=== PATIENT | male | born 1970 | race Caucasian/White ===

== ENCOUNTER 2024-10-19 16:57 | Inpatient (IN) | payer OTHER ==
[2024-10-19 18:37] LABS: Specific Gravity 1.025 (1.005-1.030); Sqamous Epithelial None Seen /HPF (None Seen); Urine Bacteria <20 /HPF (<20); Urine Bilirubin NEGATIVE (Negative); Urine Blood 3+ (OVER) (Negative); Urine Clarity Extremely Turbid (Clear); Urine Color Yellow (Yellow); Urine Crystals Unidentified Few /HPF (None Seen); Urine Culture Reflex Order REFLEXED; Urine Glucose 4+ (Over) (Negative); Urine Ketones NEGATIVE (Negative); Urine Microscopic Reflex YN ORDER UMIC; Urine Mucus 1+ /HPF (None Seen); Urine Nitrite NEGATIVE (Negative); Urine Protein 1+ (Negative); Urine RBC >50 /HPF (None Seen); Urine Urobilinogen Normal (Normal); Urine WBC >50 /HPF (<5); Urine Yeast (Budding) Trace /HPF (None Seen)
[2024-10-19] MEDS ORDERED: NA CHLORIDE 0.9% 1,000 ML ONE (18:47)
[2024-10-19 18:55] LABS: Absolute Basophils 0.1 K/uL (0-0.5); Absolute Lymphocytes (CBC) 1.4 K/uL (0.7-4.9); Absolute Monocytes 0.8 K/uL (0.1-1.3); Absolute Neutrophil 13.9 K/uL (1.8-8.0); Basophils % 0.7 % (0-1.3); Hematocrit 45.5 % (39.6-49.0); Hemoglobin 15.2 g/dL (13.6-17.9); Lymphocytes % 8.6 % (15.3-44.8); MCH 31.2 pg (27.0-35.0); MCHC 33.5 g/dL (32.0-36.0); MCV 93.1 fL (80-100); MPV 9.1 fL (7.6-11.3); Monocytes % 4.9 % (3.3-12.3); Neutrophils % 85.8 % (41.7-73.7); Nucleated Red Blood Cells % 0.1 % (0-0); Platelets 209 thou/uL (152-406); RBC Red Blood Cell Count 4.89 M/uL (4.33-5.43); Red Cell Distribution Width 15.3 % (12.1-15.2)
[2024-10-19 19:06] LABS: Albumin 3.4 g/dL (3.4-5.0); Albumin/Globulin Ratio 0.7 (1.1-1.8); Anion Gap 18.1 mEq/L (5.0-15.0); Bilirubin Total 1.1 mg/dL (0.2-1.0); Globulin 4.7 g/dL (2.3-3.5); Potassium 4.1 mEq/L (3.5-5.1); Protein, Total 8.1 g/dL (6.4-8.2)
[2024-10-19 19:50] LABS: PT Prothrombin Time 13.7 SECONDS (9.4-12.5); PTT, Activated Partial Thromb 34.6 SECONDS (24.3-36.9); Protime INR 1.23
--- NOTE | 2024-10-19 20:27 | RAD REPORT ---
EXAMINATION: Stone Protocol CLINICAL INDICATION: Abdominal pain. Flank pain TECHNIQUE: CT abdomen and pelvis was performed, without IV contrast, as per department protocol. Oral contrast not given. Axial, sagittal and coronal reconstructions were obtained. One or more of the following dose reduction techniques were used: Automated exposure control, adjustment of the mA and k V according to the patient size, and iterative reconstruction. Unless otherwise specified, incidental findings do not require dedicated imaging follow-up. COMPARISON: No prior exam. FINDINGS: The lack of intravenous and oral contrast limits the sensitivity of this exam for evaluation of solid visceral organs, vascular structures, and bowel Multiple left renal calculi. Mild to moderate left hydronephrosis. 11 mm calculus distal left ureter. A right renal calculus is not seen. No right ureteral calculus visualized. Tiny calculus within the p osterior right bladder may have recently passed. Bladder wall is thickened and trabeculated. Bladder diverticula Cirrhotic liver. Spleen, pancreas and adrenals grossly normal. No evidence of diverticulitis. Normal appendix IMPRESSION: 11 mm calculus distal left ureter results in mild to moderate left hydronephrosis
[2024-10-19] MEDS ORDERED: CEFTRIAXONE 1000 MG/VIAL ONE (20:34)
--- NOTE | 2024-10-19 20:45 | EDPHYS ---
Physician Documentation [facility] Name: Kev Yu IV Age: 54 yrs Sex: Male : 1970 Arrival Date: 10/19/2024 Time: 16:57 Bed 25 Private MD: ED Physician Ag Manriquez HPI: 10/19 21:15 This 54 yrs old Male presents to ER via Ambulatory with complaints of Flank Pain, kb Urinary Problem. 21:15 Pt is a 54 year old male who presents for flank pain and urinary retention that started kb this morning. states last time he was able to urinate was last night. Went to Dr Chakraborty and was sent here. Denies fever. Historical: - Allergies: 17:32 No Known Allergies; tm6 - PMHx: 17:32 Diabetes mellitus; Hypertensive disorder; tm6 - PSHx: 17:32 None; tm6 - Immunization history:: Flu vaccine is not up to date. - Infectious Disease History:: Denies. - Social history:: Smoking status: Patient denies any tobacco usage or history of. ROS: 21:04 Constitutional: As per HPI kb Exam: 20:58 Constitutional: This is a well developed, well nourished patient who is awake, alert, kb and in no acute distress. Head/Face: Normocephalic, atraumatic. ENT: Moist Mucous membranes Cardiovascular: Regular rate Respiratory: Respirations even and unlabored. No increased work of breathing. Talking in full sentences Skin: Warm, dry with normal turgor. Normal color. MS/ Extremity: Pulses equal, no cyanosis. Neurovascular intact. Full, normal range of motion. Neuro: Awake and alert, GCS 15, oriented to person, place, time, and situation. 20:58 ECG was reviewed by the Attending Physician. 20:58 Abdomen/GI: Inspection: abdomen appears normal, Bowel sounds: normal, Palpation: soft, in all quadrants, mild abdominal tenderness, in the right lower quadrant and left lower quadrant, 20:58 Back: CVA tenderness, that is mild, is noted bilaterally, Vital Signs: 17:31 BP 184 / 116; Pulse 130; Resp 40; Temp 98.3(O); Pulse Ox 99% on R/A; MAP 135 mmHg; tm6 Weight 120.2 kg; Height 6 ft. 0 in. ; Pain 7/10; 18:30 BP 150 / 96; Pulse 122; Resp 16; Pulse Ox 96% on R/A; me1 19:30 BP 120 / 62; Pulse 116; Resp 18; Pulse Ox 95% ; me1 20:30 BP 121 / 73; Pulse 124; Resp 16; Pulse Ox 96% on R/A; me1 17:31 Body Mass Index 35.94 (120.20 kg, 182.88 cm) tm6 17:31 Pain Scale: Adult tm6 MDM: 17:00 Medical Screening Exam initiated kb 20:37 Data reviewed: vital signs, nurses notes. Consideration of Admission/Observation kb Patient was admitted/placed on observation. Escalation of care including admission/observation considered. Management of patient was discussed with the following: Hospitalist: Dr Stoner accepts pt for admisison. Configuration Analyst: Dr Farmer accepts pt for admission, will take to OR tonight. 20:50 Differential diagnosis: nephrolithiasis, pyelonephritis, UTI. ED course: Sepsis kb reevaluation complete. 21:37 Counseling: I had a detailed discussion with the patient and/or guardian regarding the kb historical points, exam findings, and any diagnostic results supporting the discharge/admit diagnosis, lab results, radiology results, the need for further work-up and treatment in the hospital. 10/19 17:01 Order name: CBC with Diff; Complete Time: 20:52 kb 10/19 17:01 Order name: CMP; Complete Time: 19:15 kb 10/19 17:01 Order name: Lipase; Complete Time: 19:15 kb 10/19 17:01 Order name: Urinalysis w/ reflexes; Complete Time: 18:45 kb 10/19 18:40 Order name: Urine Culture EDMN 10/19 19:03 Order name: Blood Culture Adult (2) 10/19 19:03 Order name: Lactate w/ 2H reflex if indic.; Complete Time: 20:20 kb 10/19 19:03 Order name: Protime (+inr); Complete Time: 19:53 kb 10/19 19:03 Order name: Ptt, Activated; Complete Time: 19:53 kb 10/19 20:19 Order name: Ghost Lactate-NO COLLECT Timer [facility] 10/19 20:50 Order name: CBC Smear Scan; Complete Time: 20:52 EDMN 10/19 17:01 Order name: CT Stone Protocol; Complete Time: 20:29 kb 10/19 19:03 Order name: EKG; Complete Time: 19:03 kb 10/19 17:01 Order name: IV Saline Lock; Complete Time: 18:47 kb 10/19 17:01 Order name: Labs collected and sent; Complete Time: 18:47 kb 10/19 19:02 Order name: Bladder Scanner; Complete Time: 20:16 kb 10/19 19:03 Order name: Cardiac monitoring; Complete Time: 20:16 kb 10/19 19:03 Order name: EKG - Nurse/Tech; Complete Time: 19:34 kb 10/19 19:03 Order name: O2 Per Protocol; Complete Time: 19:34 kb 10/19 19:03 Order name: O2 Sat Monitoring; Complete Time: 19:34 kb EC:58 Rate is 114 beats/min. Rhythm is regular. QRS Vansant is Normal. CO interval is normal at kb 174 msec. QRS interval is normal at 76 msec. QT interval is normal at 457 msec. Administered Medications: 18:50 Drug: NS 0.9% IV 1000 ml IV at 1000 ml once; to be given as a bolus over 60 minutes me1 Route: IV; Rate: 1000 ml; Site: left antecubital; 19:50 Follow up: Response: No adverse reaction; IV Status: Completed infusion; IV Intake: me1 1000ml 20:41 Drug: Rocephin IV 1 grams IV at calculated rate once; Given slow IV push per pharmacy me1 instructions Route: IV; Rate: calculated rate; Site: left antecubital; 20:59 Follow up: Response: No adverse reaction; IV Status: Completed infusion me1 20:41 Drug: NS 0.9% IV (30 ml/kg) 30 ml/kg IV at bolus once; to be given as a bolus over 90 me1 minutes, include previous NS Route: IV; Rate: bolus; Site: left antecubital; 21:00 Follow up: IV Status: Infusion continued upon admission me1 Disposition: 10/20 16:16 Co-signature as Attending Physician, Ag Manriquez MD I reviewed the patient's care rn provided by the Advanced Practice Provider and agree with the diagnosis and treatment plan. Disposition Summary: 10/19/24 20:45 Hospitalization Ordered Notes: Hospitalization Status: Inpatient Admission kb Provider: Umang Stoner Location: Telemetry/MedSurg (Inpatient) kb Condition: Stable kb Problem: new kb Symptoms: are unchanged kb Bed/Room Type: Standard kb Room Assignment: kb Diagnosis - UTI/ Urinary tract infection, site not specified kb - Severe sepsis with septic shock kb - Calculus of ureter kb - Retention of urine, unspecified kb Forms: - Medication Reconciliation Form kb - SBAR form kb - Leadership Thank You Letter kb Signatures: Dispatcher [employer] EDMS Elisabeth Miranda, TREATING ENGINEER HELPER-C TREATING ENGINEER HELPER-Ckb Ag Manriquez MD MD rn Patti Rosales RN RN me1 Jak Cadet RN RN tm6 Corrections: (The following items were deleted from the chart) 10/19 17:02 17:02 CBC+H.LAB.BRZ ordered. EDMS EDMS 17:02 17:02 COMPREHENSIVE METABOLIC PANEL+C.LAB.BRZ ordered. EDMS EDMS 17:02 17:02 LIPASE+C.LAB.BRZ ordered. EDMS EDMS 17:02 17:02 Urinalysis+U.LAB.BRZ ordered. EDMS EDMS 19:03 19:03 BLOOD CULTURE*+BA.LAB.BRZ ordered. EDMS EDMS 19:03 19:03 LACTATE+C.LAB.BRZ ordered. EDMS EDMS 19:03 19:03 PROTIME (+INR)+COAG.LAB.BRZ ordered. EDMS EDMS 19:03 19:03 PTT, ACTIVATED+COAG.LAB.BRZ ordered. EDMS EDMS
--- NOTE | 2024-10-19 20:45 | ER ---
Nurse's Notes [facility] [place], [place] Name: Kev Yu IV Age: 54 yrs Sex: Male : 1970 Arrival Date: 10/19/2024 Time: 16:57 Bed 25 Private MD: Diagnosis: UTI/ Urinary tract infection, site not specified;Severe sepsis with septic shock;Calculus of ureter;Retention of urine, unspecified Presentation: 10/19 17:31 Chief complaint: Patient states: sent by Dr. Chakraborty. No urination since last night, but tm6 urgency to pee. Pain in RLQ. Coronavirus screen: Client denies travel out of the [place] in the last 14 days. Ebola Screen: Patient negative for fever greater than or equal to 101.5 degrees Fahrenheit, and additional compatible Ebola Virus Disease symptoms Patient denies exposure to infectious person. Patient denies travel to an Ebola-affected area in the 21 days before illness onset. Patient positive for the following Ebola Virus Disease associated symptoms:. Initial Sepsis Screen: Does the patient meet any 2 criteria? RR > 20 per min. HR > 90 bpm. Does the patient have a suspected source of infection? No. Patient's initial sepsis screen is negative. Risk Assessment: Do you want to hurt yourself or someone else? Patient reports no desire to harm self or others. Onset of symptoms was October 18, 2024. 17:31 Method Of Arrival: Ambulatory tm6 17:31 Acuity: NAYELI 3 tm6 Triage Assessment: 17:32 General: Appears uncomfortable, Behavior is cooperative. Pain: Complains of pain in tm6 right lower quadrant Pain currently is 7 out of 10 on a pain scale. EENT: No signs and/or symptoms were reported regarding the EENT system. Neuro: Level of Consciousness is awake, alert, obeys commands, Oriented to person, place, time, situation. Cardiovascular: Patient's skin is warm and dry. Respiratory: Airway is patent Respiratory effort is even, labored, Respiratory pattern is tachypnea. GI: Abdomen is round. : Reports inability to void, urgency. Derm: No signs and/or symptoms reported regarding the dermatologic system. Musculoskeletal: No signs and/or symptoms reported regarding the musculoskeletal system. Historical: - Allergies: 17:32 No Known Allergies; tm6 - PMHx: 17:32 Diabetes mellitus; Hypertensive disorder; tm6 - PSHx: 17:32 None; tm6 - Immunization history:: Flu vaccine is not up to date. - Infectious Disease History:: Denies. - Social history:: Smoking status: Patient denies any tobacco usage or history of. Screenin:00 [facility] ED Fall Risk Assessment (Adult) History of falling in the last 3 months, me1 including since admission No falls in past 3 months (0 pts) Confusion or Disorientation No (0 pts) Intoxicated or Sedated No (0 pts) Impaired Gait No (0 pts) Mobility Assist Device Used No (0 pt) Altered Elimination No (0 pt) Score/Fall Risk Level 0 - 2 = Low Risk Maintained a safe environment, Provided non-skid footwear, Hourly rounding (assess needs \T\ fall precautionary measures) done. Abuse screen: Denies threats or abuse. Nutritional screening: No deficits noted. Tuberculosis screening: No symptoms or risk factors identified. Assessment: 18:00 General: Appears uncomfortable, well groomed, well developed, well nourished, Behavior me1 is cooperative, appropriate for age, anxious, Reports sent by Dr. Chakraborty. No urination since last night, but urgency to pee. Pain in RLQ. Pain: Complains of pain in right lower quadrant Pain does not radiate. Pain currently is 6 out of 10 on a pain scale. Quality of pain is described as aching, Pain began gradually, Is continuous. Neuro: Level of Consciousness is awake, alert, obeys commands, Oriented to person, place, time, situation, Appropriate for age. Cardiovascular: Patient's skin is warm and dry. Respiratory: Airway is patent Respiratory effort is even, unlabored, Respiratory pattern is regular, symmetrical. GI: Reports lower abdominal pain. : Reports inability to void, since last night pain in right lower quadrant(s). EENT: No signs and/or symptoms were reported regarding the EENT system. Derm: Skin is intact, is healthy with good turgor, Skin is pink, warm \T\ dry. Musculoskeletal: No signs and/or symptoms reported regarding the musculoskeletal system. 19:36 General: Patient has been incontinent 3 times, voiding about 200 ml each time. me1 20:16 General: bladder scanner: 347ml. nv1 Vital Signs: 17:31 BP 184 / 116; Pulse 130; Resp 40; Temp 98.3(O); Pulse Ox 99% on R/A; MAP 135 mmHg; tm6 Weight 120.2 kg; Height 6 ft. 0 in. ; Pain 7/10; 18:30 BP 150 / 96; Pulse 122; Resp 16; Pulse Ox 96% on R/A; me1 19:30 BP 120 / 62; Pulse 116; Resp 18; Pulse Ox 95% ; me1 20:30 BP 121 / 73; Pulse 124; Resp 16; Pulse Ox 96% on R/A; me1 17:31 Body Mass Index 35.94 (120.20 kg, 182.88 cm) tm6 17:31 Pain Scale: Adult tm6 ED Course: 16:59 Patient arrived in ED. im 17:00 Elisabeth Miranda FNP-C is PHCP. kb 17:00 Ag Manriquez MD is Attending Physician. kb 17:32 Triage completed. tm6 17:32 Arm band placed on left wrist. tm6 17:38 Patti Rosales, BESSY is Primary Nurse. me1 18:00 Patient has correct armband on for positive identification. Bed in low position. Call me1 light in reach. Side rails up X2. Provided Education on: POC. Verbalized understanding.. Client placed on continuous cardiac and pulse oximetry monitoring. NIBP monitoring applied. Pulse ox on. NIBP on. 18:00 No provider procedures requiring assistance completed. me1 18:43 Initial lab(s) drawn, by nv, sent to lab. Urine collected: clean catch specimen, [facility] cloudy, juan colored. Inserted saline lock: 22 gauge in left antecubital area, using aseptic technique. 18:47 CBC with Diff Sent. me1 18:47 CMP Sent. me1 18:47 Lipase Sent. me1 18:47 Urine Culture Sent. me1 19:26 First set of blood cultures drawn by nv. me1 19:34 Blood Culture Adult (2) Sent. me1 19:34 Lactate w/ 2H reflex if indic. Sent. me1 19:34 Protime (+inr) Sent. me1 19:34 Ptt, Activated Sent. me1 19:37 Second set of blood cultures drawn by nv. me1 19:43 CT Stone Protocol In Process Unspecified. EDMS 20:17 Notified Nurse Practitioner and/or Physician Resident Service Coordinator of a critical lab result(s), me1 lactate 6.3. 20:45 Umang Stoner MD is Hospitalizing Provider. kb 21:00 Patient admitted, IV remains in place. me1 Administered Medications: 18:50 Drug: NS 0.9% IV 1000 ml IV at 1000 ml once; to be given as a bolus over 60 minutes me1 Route: IV; Rate: 1000 ml; Site: left antecubital; 19:50 Follow up: Response: No adverse reaction; IV Status: Completed infusion; IV Intake: me1 1000ml 20:41 Drug: Rocephin IV 1 grams IV at calculated rate once; Given slow IV push per pharmacy me1 instructions Route: IV; Rate: calculated rate; Site: left antecubital; 20:59 Follow up: Response: No adverse reaction; IV Status: Completed infusion me1 20:41 Drug: NS 0.9% IV (30 ml/kg) 30 ml/kg IV at bolus once; to be given as a bolus over 90 me1 minutes, include previous NS Route: IV; Rate: bolus; Site: left antecubital; 21:00 Follow up: IV Status: Infusion continued upon admission me1 Medication: 18:00 VIS not applicable for this client. me1 Intake: 19:50 IV: 1000ml; Total: 1000ml. me1 Outcome: 20:45 Decision to Hospitalize by Provider. kb 21:00 Admitted to OR accompanied by nurse, room OR, with chart, Report called to BESSY Morton me1 21:00 Condition: stable 21:00 Instructed on the need for admit, 21:03 Patient left the ED. [facility] Signatures: Dispatcher [employer] Elisabeth Brooks, [employer] W[employer]CKING CRANE ENGINE OPERATOR-Joyce Guillen Michelle, RN RN me1 Jak Cadet RN RN tm6 Corrections: (The following items were deleted from the chart) 18:50 17:31 Chief complaint: Patient states: sent by Dr. Chakraborty. No urination since last me1 night, but urgency to pee. Pain in RLQ tm6
[2024-10-19 20:49] LABS: Blood Morphology Comment NOT SEEN (NOT SEEN); Platelet Estimate ADEQ; White Blood Cell Scan OK (OK)
[2024-10-19] MEDS ORDERED: ONDANSETRON 4 MG/2 ML VIAL IV PRN (21:18)
[2024-10-19] MEDS ORDERED: ACETAMINOPHEN 325 MG TABLET PO PRN (21:18)
--- NOTE | 2024-10-19 21:18 | P.HP ---
Certification for Inpatient Patient admitted to: Inpatient With expected LOS: >2 Midnights Practitioner: I am a practitioner with admitting privileges, knowledge of patient current condition, hospital course, and medical plan of care. Services: Services provided to patient in accordance with Admission requirements found in Title 42 Section 412.3 of the Code of Federal Regulations Patient History Date of Service: 10/20/24 Reason for admission: Ureteric Colic History of Present Illness: 54-year-old male with past medical history of hypertension, diabetes, hyperlipidemia, was sent to ER by Dr. Chakraborty as he was complaining of pain in lateral lower quadrant which started 2 days ago and has been progressively getting worse associated with dysuria and frequency of micturition and states that he could not pee since last night. Patient was progressively getting worse and was brought to ER. Denies any fever or chills. No chest pain or shortness of breath. No nausea vomiting or diarrhea. Patient was assessed in the ER and is admitted for further management of nephrolithiasis and urology consult Allergies No Known Allergies Allergy (Unverified 10/19/24 21:40) Home medications list reviewed: Yes Home Medications: Allopurinol 300 mg PO DAILY 10/20/24 Insulin Degludec [Tresiba] 64 unit SQ DAILY 10/20/24 Metformin ER [Glucophage ER] 500 mg PO BID 10/20/24 Rosuvastatin Calcium 20 mg PO DAILY 10/20/24 - Past Medical/Surgical History Past Medical History: Reviewed- Non-Contributory -: DM,HTN Past Surgical History: Reviewed- Non-Contributory - Family History Family History: Reviewed- Non-Contributory - Social History Smoking Status: Never smoker Review of Systems 10-point ROS is otherwise unremarkable Physical Examination - Vital Signs Temperature: 98.3 F Blood Pressure: 184/116 Pulse: 112 Respirations: 20 Pulse Ox (%): 94 - Physical Exam General: Alert, Moderate distress HEENT: Atraumatic, Normocephalic Neck: Supple Respiratory: Clear to auscultation bilaterally, Normal air movement Cardiovascular: Normal pulses, Normal S1 S2 Capillary refill: <2 Seconds Gastrointestinal: Soft and benign, W/out hepatosplenomegaly, Tenderness Musculoskeletal: No clubbing Integumentary: No rashes Neurological: Normal gait, Normal strength at 5/5 x4 extr, Cranial nerves 3-12 intact, Normal reflexes 2+ Lymphatics: No axilla or inguinal lymphadenopathy - Studies Laboratory Data (last 24 hrs) 10/19/24 10/19/24 10/19/24 19:26 18:42 18:42 WBC 16.20 H Hgb 15.2 Hct 45.5 Plt Count 209 PT 13.7 H INR 1.23 APTT 34.6 Sodium 137 Potassium 4.1 BUN 20 H Creatinine 1.49 H Glucose 235 H Total Bilirubin 1.1 H AST 64 H ALT 49 Alkaline Phosphatase 83 Lipase 50 Assessment and Plan - Plan Calculus left distal ureter with hydronephrosis left side Ureteric colic Lactic acidosis Acute kidney injury Elevated LFTs Leukocytosis UTI Plan CT findings noted 11 mm calculus distal left ureter results in mild to moderate left hydronephrosis Pain control IV hydration Started on IV antibiotics Will obtain cultures Serial lactic acid levels Appreciate help from urology Status post stent placement Renal parameters monitor Insulin sliding scale Antihypertensives titrated Will monitor LFTs in a.m. GI/DVT prophylaxis Advanced directive full code Discharge Plan: Home Plan to discharge in: 48 Hours - Advance Directives Does patient have a Living Will: No Does patient have a Durable POA for Healthcare: No - Code Status/Comfort Care Code Status: Full Code Time Spent Managing Pts Care (In Minutes): 48
[2024-10-19] MEDS: SUCCINYLCHOLINE 20 MG/ML (10 ML) IV ONE (21:31)
--- NOTE | 2024-10-19 21:32 | P.CNS ---
Date of Consult: 10/19/24 Reason for Consult: Obstructive ureterolithiasis and suspected sepsis with shock Chief Complaint: Ureteric Colic History of Present Illness: 54-year-old gentleman with IDDM 2, hypertension, hypercholesterolemia and gout with history of penile skin graft over 30 years ago presents via the emergency department because he could not void this a.m. He noted that for the last 2 weeks, he has had a weak stream, but this occurred out of the blue. He denied any associated fever/chills, nausea or vomiting. He was having some right lower quadrant pain and may have had a slight degree of right flank pain as well, but this was mild, 1 out of 10 in intensity. He denies any prior history of kidney stones. In the emergency department, 3 nurses attempted to pass a catheter unsuccessfully, meeting a point of obstruction somewhere within the mid proximal urethra according to the patient. Past medical history: As above Past surgical history: As above Family history: Denies urologic malignancy Social history: Denies any history of smoking No known drug allergies Examination: Patient reasonably well-appearing and in no acute distress Alert, awake, oriented x 3 No dyspnea or sign of respiratory distress Pulse 2+ radial, regular but tachycardic Abdomen soft, nontender, nondistended but obese Resting in a hospital stretcher 10/19/2024 WBC 16.2, hemoglobin 15.2, platelets 209, creatinine 1.49, glucose 235, lactate 6.3, AST mildly elevated 64, INR 1.23 UA micro 3+ heme, 1+ leukocyte esterase, negative nitrites, over 50 RBCs/WBCs per hpf 10/19/2024 CT abdomen and pelvis without contrast impression: An 11 mm calculus distal left ureter resulting in mild to moderate left hydronephrosis. Findings: A right renal calculus is not seen. No right ureteral calculus visualized. Tiny calculus within the posterior right bladder may have recently passed. Bladder wall is thickened and trabeculated. Bladder diverticula. Cirrhotic liver. -I reviewed the images of the CT scan in detail with the following findings: Left kidney with 4 stones, 6 mm largest within the mid lower pole Left distal ureter 11 mm burden of stone with ureteral nephrosis extending down to the UVJ Mild right hydronephrosis with mild ureteral nephrosis noted without obstructing stone Thickened bladder wall with bilateral posterior wall diverticula Assessment and recommendations: 54-year-old gentleman with IDDM 2, hypertension, hypercholesterolemia and gout with history of penile skin graft over 30 years ago due to adhesions apparently with recent irritative and obstructive LUTS with findings of large volume left ureterolithiasis causing obstruction with left-sided hydronephrosis and suspected pyelonephritis with signs of septic shock, right mild hydroureteronephrosis, evidence of chronic cystitis with suspected lower obstructive uropathy. -Operative evaluation and management now required as follows: Cystoscopy with urethral manipulation, possible Jasmine catheter placement followed by left retrograde pyelography and stent placement, right retrograde pyelography possible stent placement. I counseled him on the potential need for percutaneous nephrostomy tube placement on the left side. We discussed potentially having to keep a catheter for up to 10 days. Potential for worsening of his underlying infection was discussed. -Ceftriaxone given in the emergency department -Emergent operative intervention Home medications list reviewed: Yes - Past Medical/Surgical History Diabetic: Yes -: DM,HTN Physical Examination Laboratory Data (last 24 hrs) 10/19/24 10/19/24 10/19/24 19:26 18:42 18:42 WBC 16.20 H Hgb 15.2 Hct 45.5 Plt Count 209 PT 13.7 H INR 1.23 APTT 34.6 Sodium 137 Potassium 4.1 BUN 20 H Creatinine 1.49 H Glucose 235 H Total Bilirubin 1.1 H AST 64 H ALT 49 Alkaline Phosphatase 83 Lipase 50 - Problems (1) Obstructive pyelonephritis Current Visit: Yes Status: Acute (2) Septic shock Current Visit: Yes Status: Acute (3) Nephroureterolithiasis Current Visit: Yes Status: Acute (4) Bilateral hydronephrosis Current Visit: Yes Status: Acute (5) Chronic cystitis Current Visit: Yes Status: Acute (6) Lower obstructive uropathy Current Visit: Yes Status: Acute Conclusions/Impression: see A&P in HPI Critical Care: No Time Spent Managing Pts care (In Minutes): 45
[2024-10-19] MEDS ORDERED: FENTANYL CITR 100 MCG/2 ML ONE (21:37)
[2024-10-19] MEDS ORDERED: MIDAZOLAM HCL 2 MG/2 ML INJ ONE (21:37)
[2024-10-19] MEDS ORDERED: propofoL 200 MG/20 ML VIAL IV ONE (21:37)
[2024-10-19] MEDS ORDERED: NA CHLORIDE 0.9% 1,000 ML IV SCH (22:00)
[2024-10-19] MEDS: NA CHLORIDE 0.9% 3,000 ML ONE (22:18)
[2024-10-19] MEDS ORDERED: Phenylephrine HCl 10 MG/ML 1 ML VIAL ONE (22:22)
[2024-10-19] MEDS ORDERED: Mastisol Adhesive Liq ONE (22:32)
--- NOTE | 2024-10-19 23:04 | P.OP ---
Date of Service: 10/19/24 Preoperative diagnoses: Obstructive pyelonephritis Severe sepsis, suspected septic shock Bilateral hydronephrosis, left greater than right Left obstructive ureterolithiasis with nephrolithiasis Lower obstructive uropathy Postoperative diagnoses: Obstructive pyelonephritis Severe sepsis, suspected septic shock Bilateral hydronephrosis, left greater than right Left obstructive ureterolithiasis with nephrolithiasis Perineal urethral stricture disease Bladder diverticulae with mild to moderate trabeculation Principal procedures: Cystoscopy Sequential urethral dilation over a wire Left retrograde pyelography Left 6 [place]ian by 26 cm double-J ureteral stent placement Right retrograde pyelography Right 6 [place]ian by 26 double-J tethered ureteral stent placement Complex 20 [place] Jasmine catheter placement over a wire Indication for procedure: 54-year-old gentleman with IDDM 2, hypertension, hypercholesterolemia and gout with history of penile skin graft over 30 years ago due to adhesions apparently with recent irritative and obstructive LUTS with findings of large volume left ureterolithiasis causing obstruction with left-sided hydronephrosis and suspected pyelonephritis with signs of septic shock, right mild hydroureteronephrosis, evidence of chronic cystitis with suspected lower obstructive uropathy. Procedure note: The patient, who is showing signs of severe sepsis, possible shock associated with a lactate above 6, was receiving 3 L of IV fluids started in the emergency department. He had been given ceftriaxone also in the emergency department. He was consented in the preoperative holding area before being transferred to the operative suite where general anesthesia was induced. He was placed in the lithotomy position, padded and secured appropriately to the table. His genitalia was prepped with Hibiclens and he was draped in standard fashion. The case was begun using the 22 [place]ian rigid cystoscope to traverse the meatus and the distal urethra until a point of pinpoint stricture narrowing was noted in the perineal aspect of the urethra, likely further traumatized by attempted catheter placement. A filmy covering over the pinpoint opening in the center of the lumen of the stricture disease was present. Under direct vision, I passed a sensor wire via the scope through the area of lucency in the center of the stricture and ultimately coiled it within the bladder putatively. This was confirmed with fluoroscopic imagery showing the wire coiled within a dilated bladder. I then passed a 5 [place]ian ureteral access catheter over the sensor wire into the bladder and exchanged the sensor wire for a stiffer guidewire associated with the sequential Cook dilators. I then began dilating the stricture disease from 8 Lithuanian to 22 Lithuanian over the wire. Once this was completed, I then backloaded the cystoscope over the wire and passed it beyond the area of stricture narrowing within the perineo-bulbar urethra and ultimately through the prostatic urethra which was insignificantly obstructing before entering the bladder. I then decompressed the bladder of a large volume of urine and surveyed it. The following were the findings: Meatus -patent with evidence of skin grafting involving the entirety of the phallus Urethra -perineo-bulbar stricture disease, dilated Prostatic urethra -mild lateral lobar hypertrophy with no significant intravesical projection Bladder -mild to moderately trabeculated throughout with small diverticuli posteriorly and small stones noted within. The ureteral orifices were orthotopic in location and nonobstructed. I thus cannulated the left ureteral orifice using the tip of a 5 [place]ian ureteral access catheter. A retrograde pyelography was then performed. Left retrograde pyelography: Using a 70: 30 mixture of Omnipaque and saline, the contrast mixture was injected via the 5 [place]ian ureteral access catheter and did propagate into the distal ureter where it met a point of tortuosity that delayed progression of the contrast into the mid ureter where additional tortuosity was encountered before entering the proximal ureter and ultimately into the renal pelvis and calyces where moderate pelvocaliectasis was noted. The stones were radiolucent. I then passed the sensor wire via the 5 [place]ian ureteral access catheter with initially some difficulty navigating it beyond the initial point of tortuosity, ultimately navigating it successfully into the proximal ureter and renal pelvis and upper pole calyx. Over the wire, I then passed a 6 [place] by 26 cm double-J ureteral stent where a coil was formed fluoroscopically in the upper pole of the left kidney and 1 cystoscopically formed in the bladder. The stent was not tethered because of the volume of stone burden that still needed to be managed. I then turned my attention to the patient's right ureteral orifice which was similarly cannulated using the tip of a 5 [place]ian ureteral access catheter, and performed a retrograde pyelography study. Right retrograde pyelography: Similarly, using the 70: 30 mixture of Omnipaque and saline, the mixture was injected via the 5 [place] ureteral access catheter and did propagate up the distal into the mid and proximal ureter before entering the renal pelvis and calyces which did fill without any evidence of filling defect. Mild pelviectasis with minimal blunting of the calyces was noted. I then observed the kidney for drainage and efflux of the contrast over the course of the next several minutes, and while the contrast did exit the ureter well, there was slight delayed exit of contrast from the renal pelvis and calyces. Spot fluoroscopic imagery was done between 30 seconds and 1 minute and again at 3 minutes. As a result, I elected to place a tethered 6 [place]ian by 26 cm double-J ureteral stent into his right ureter, with a coil observed fluoroscopically in the upper pole calyx and 1 cystoscopically formed in his bladder. Since the stent was lef t on his tether, I remove the cystoscope and then replaced the cystoscope via his urethra into his bladder ultimately to pass the catheter guidewire via the scope into the bladder and then leaving the wire in place, passed a 20 [place] tip Jasmine catheter over the wire into the bladder. 15 cc of sterile water was placed in the balloon. The tether of the right ureteral stent was secured to the catheter using Mastisol and Steri-Strips, and the catheter was connected to a floor bag. He was then taken out of the lithotomy position, awakened from general anesthesia, transferred to a stretcher, and then transferred to the recovery room in good condition. Complications: None Discharge disposition: A second lactic acid was sent at around 10:22PM intraoperatively while the initial bolus of 3 L was still running him. The patient remained somewhat tachypneic even at the end of the procedure and remained tachycardic as well. He will be admitted and managed expectantly given his suspected sepsis. Subsequent follow-up should be established in the urology clinic in 10 to 14 days for urethral Jasmine catheter removal along with the tethered right ureteral stent, which is secured to the catheter. Subsequent definitive management of his left nephroureterolithiasis will be discussed with me in preoperative evaluation prior to plans for definitive management as follows: Left ureteroscopy with laser lithotripsy and stent exchange, ideally this will be completed within the next 30 days if possible.
[2024-10-19] MEDS: Ringers Lactate 1,000 ML IV ONE (23:11)
[2024-10-19] MEDS: Ringers Lactate 1,000 ML IV SCH (23:48)
[2024-10-19] MEDS: MORPHINE 2 MG/ML SYR IV PRN (23:49)
[2024-10-20 00:20] VITALS: BMI 35.9
[2024-10-20] MEDS ORDERED: LABETALOL 20 MG/4ML SYRINGE IV PRN (00:43)
[2024-10-20] MEDS: HYDROCODONE/APAP 5/325 MG TAB PO PRN (02:31)
[2024-10-20 07:02] LABS: Absolute Basophils 0.2 K/uL (0-0.5); Absolute Eosinophils 0.1 K/uL (0-0.5); Absolute Lymphocytes (CBC) 3.5 K/uL (0.7-4.9); Absolute Monocytes 1.5 K/uL (0.1-1.3); Basophils % 1.1 % (0-1.3); Eosinophils % 0.7 % (0-4.4); Hematocrit 40.8 % (39.6-49.0); Hemoglobin 13.4 g/dL (13.6-17.9); Lymphocytes % 23.1 % (15.3-44.8); MCH 30.6 pg (27.0-35.0); MCHC 32.7 g/dL (32.0-36.0); MCV 93.6 fL (80-100); MPV 9.5 fL (7.6-11.3); Monocytes % 9.9 % (3.3-12.3); Neutrophils % 65.2 % (41.7-73.7); Platelets 152 thou/uL (152-406); RBC Red Blood Cell Count 4.36 M/uL (4.33-5.43); Red Cell Distribution Width 15.1 % (12.1-15.2)
[2024-10-20 07:27] LABS: Albumin 2.7 g/dL (3.4-5.0); Albumin/Globulin Ratio 0.7 (1.1-1.8); Anion Gap 11.6 mEq/L (5.0-15.0); Bilirubin Total 0.9 mg/dL (0.2-1.0); Globulin 3.9 g/dL (2.3-3.5); Phosphorus 2.3 mg/dL (2.5-4.9); Protein, Total 6.6 g/dL (6.4-8.2)
[2024-10-20 07:28] LABS: Magnesium 1.9 mg/dL (1.6-2.4); Potassium 3.6 mEq/L (3.5-5.1)
--- NOTE | 2024-10-20 07:43 | RAD REPORT ---
EXAM: Cystogram HISTORY: cysto COMPARISON: None Fluoroscopy time 0.24 minutes.
[2024-10-20] MEDS: ENOXAPARIN 40 MG/0.4 ML SQ SCH (07:50)
[2024-10-20] MEDS: FLU (Fluarix Triv) TS24-25(6MOS UP)/PF 45 MCG/0.5 ML Syringe IM ONE (07:50)
[2024-10-20] MEDS: PNEUMOCOCCAL VACCINE 0.5 ML IMVAC ONE (07:50)
[2024-10-20] MEDS: allopurinoL 300 MG TAB PO SCH (07:51)
[2024-10-20] MEDS: ROSUVASTATIN 10 MG TAB PO SCH (07:51)
[2024-10-20] MEDS: Ringers Lactate 1,000 ML IV SCH (07:52)
[2024-10-20] MEDS ORDERED: HOME MED 1 EA UNK (Insulin Degludec [Tresiba] 100 UNIT/ML Vial) SQ SCH (09:00)
[2024-10-20] MEDS ORDERED: METFORMIN ER 500 MG TAB PO SCH (09:00)
--- NOTE | 2024-10-20 11:38 | P.PN ---
Subjective Date of Service: 10/20/24 Chief Complaint: Ureteric Colic Subjective: Improving Patient underwent urology procedure yesterday, left ureteral stent placement. Patient reports this morning experiencing pain which is relieved by [place] and mild gross hematuria in Jasmine bag, denied any fever or chills or rigor or flank pain. Review of Systems Other: Consitutional; fever(-), chills (-), rigor(-), night sweat(-), unintentional weight loss(-) HEENT; diplopia (-), rhinorrhea (-), epistaxis (-), otorrhea (-), otalgia (-) Respiratory; shortness of breath (-), wheezing (-), cough (-), sputum (-), pleuritic chest pain (-) Cardiovascular; chest pain (-), peripheral edema (-), paroxysmal nocturnal dyspnea (-), orthopnea (-) Gastrointestinal; nausea (-), vomiting (-), abdominal pain (-), diarrhea (-), constipation (-), melena (-), hematochezia (-) Urinary; urinary frequency (-), dysuria (-), urgency (-), flank pain (-), gross hematuria (+), incontinence (-) Skin; rash (-), pruritus (-) 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 General: Obese, not acutely ill looking, in no apparent distress,. HEENT: Normocephalic, atraumatic, nonicteric sclera, nonanemic conjunctive. Neck: Supple, without JVD or goiter or thyroid mass. Respiratory: Normal breathing effort, clear to auscultation bilaterally, no crackles no wheezing or rhonchi. Cardiovascular: Regular rate and rhythm, S1, S2 normal, no murmur no gallop. Gastrointestinal: Normal bowel sounds, nondistended, nontender, No ascites, , No masses, no hepatosplenomegaly, indwelling Jasmine catheter in, light bloody urine in the bag. Extremities l: No clubbing, No peripheral edema, full range of motion, no deformity, no muscle atrophy. Integumentary: No rashes, petechia, suspected lesions. Lymphatics: No axilla or cervical lymphadenopathy. Neurology; alert awake oriented x3, no focal neurologic deficit, normal affection . mood and behavior. - Studies Laboratory Data (last 24 hrs) 10/19/24 10/19/24 10/19/24 19:26 18:42 18:42 WBC 16.20 H Hgb 15.2 Hct 45.5 Plt Count 209 PT 13.7 H INR 1.23 APTT 34.6 Sodium 137 Potassium 4.1 BUN 20 H Creatinine 1.49 H Glucose 235 H Total Bilirubin 1.1 H AST 64 H ALT 49 Alkaline Phosphatase 83 Lipase 50 Assessment And Plan - Plan This is 54 years old gentleman with past medical history notable for type 2 diabetes, hypertension, hyperlipidemia, status post penile skin graft who presented to emergency room for left flank pain and noted to have 1 cm left distal ureteral stone, underwent cystoscopy and left ureteral double J stent placement yesterday and admitted on general medical floor #1 symptomatic left ureteral stone status post bilateral ureteral stent on October 19 Procedure was successful, pain control with [place] p.o./IV morphine, follow-up urology recommendation CT of abdomen and pelvis on admission personally reviewed mild left hydronephrosis, thickened bladder wall, no radiology sign of acute pyelonephritis #2 mild EDWARD secondary to #1 BUN/creatinine mildly elevated at 20/1.49, today normalized #3 possible acute left complicated pyelonephritis Blood and urine culture are pending, no bacteriuria by UA, remained afebrile, leukocytosis 16.2, low risk of MDR, will continue Zosyn until urine culture c omes back #4 type 2 diabetes Random blood sugar 235, home long-acting insulin restarted, I will put him on moderate sliding scale as well, I will put his metformin on hold for recent IV contrast study. DVT prophylaxis sequential compression device due to recent urologic intervention Disposition; plan to discharge home in 1 or 2 days
[2024-10-20] MEDS ORDERED: D10W 125 ML IV PRN (16:39)
[2024-10-20] MEDS ORDERED: GLUCAGON 1 MG/VIAL IM PRN (16:39)
[2024-10-20] MEDS: INSULIN GLARGINE 100 UNIT/ML SQ SCH (17:04)
[2024-10-20] MEDS: PIPER TAZO 3.375 GM in NA CHLORIDE 0.9% 100 ML IV SCH (20:47)
[2024-10-20] MEDS: INSULIN REGULAR (HUMAN) 100 UNIT/ML SQ SCH (20:58)
[2024-10-21] MEDS: CEFTRIAXONE 2,000 MG in NA CHLORIDE 0.9% 100 ML IV SCH (08:52)
[2024-10-21] MEDS: INSULIN LISPRO 100 UNIT/1 ML SQ SCH (08:52)
[2024-10-21] MEDS ORDERED: INSULIN GLARGINE 100 UNIT/ML SQ SCH (09:00)
--- NOTE | 2024-10-21 10:02 | P.PN ---
Subjective Date of Service: 10/21/24 Chief Complaint: Ureteric Colic Subjective: Improving He states that he is feeling better every day, less flank pain, his urine is getting cleared, he still have a pain reasonably controlled with IV and oral medication. Denied any fever or chill or nausea and vomiting, tolerating oral diet well. Review of Systems Other: Consitutional; fever(-), chills (-), rigor(-), night sweat(-), unintentional weight loss(-), malaise (-) HEENT; diplopia (-), rhinorrhea (-), epistaxis (-), otorrhea (-), otalgia (-) Respiratory; shortness of breath (-), wheezing (-), cough (-), sputum (-), pleuritic chest pain (-) Cardiovascular; chest pain (-), peripheral edema (-), paroxysmal nocturnal dyspnea (-), orthopnea (-) Gastrointestinal; nausea (-), vomiting (-), abdominal pain (-), diarrhea (-), constipation (-), melena (-), hematochezia (-) Genitourinary; urinary frequency (-), dysuria (-), urgency (-), flank pain (-), gross hematuria (+), incontinence (-) Skin; rash (-), pruritus (-) 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 General: Obese, not acutely ill looking, in no apparent distress,. HEENT: Normocephalic, atraumatic, nonicteric sclera, nonanemic conjunctive. Neck: Supple, without JVD or goiter or thyroid mass. Respiratory: Normal breathing effort, clear to auscultation bilaterally, no crackles no wheezing or rhonchi. Cardiovascular: Regular rate and rhythm, S1, S2 normal, no murmur no gallop. Gastrointestinal: Normal bowel sounds, nondistended, nontender, No ascites, , No masses, no hepatosplenomegaly, indwelling Jasmine catheter in, less bloody urine in the bag. Extremities l: No clubbing, No peripheral edema, full range of motion, no deformity, no muscle atrophy. Integumentary: No rashes, petechia, suspected lesions. Lymphatics: No axilla or cervical lymphadenopathy. Neurology; alert awake oriented x3, no focal neurologic deficit, normal affection . mood and behavior. Assessment And Plan - Plan This is 54 years old gentleman with past medical history notable for type 2 diabetes, hypertension, hyperlipidemia, status post penile skin graft who presented to emergency room for left flank pain and noted to have 1 cm left distal ureteral stone, underwent cystoscopy and left ureteral double J stent placement yesterday and admitted on general medical floor #1 symptomatic left ureteral stone status post bilateral ureteral stent on October 19 Procedure was successful, pain control with [place] p.o./IV morphine, follow-up urology recommendation CT of abdomen and pelvis on admission personally reviewed mild left hydronephrosis, thickened bladder wall, no radiology sign of acute pyelonephritis #2 mild EDWARD secondary to #1 Resolved BUN/creatinine mildly elevated at 20/1.49 #3 questionable complicated UTI Blood culture no growth to date, urine culture preliminary mixed sharlene, no bacteriuria by UA, remained afebrile, leukocytosis 16.2, low risk of MDR, I will downgrade antibiotics from Zosyn to ceftriaxone 2 g based on his body weight, plan to discontinue antibiotics at the time of discharge, I will order follow-up CBC BMP tomorrow morning. #4 uncontrolled type 2 diabetes Glycemia is not optimized, I will add 6 unit aspart with each meal in addition to his home long-acting insulin, continue on moderate corrective insulin, his metformin on hold for recent IV contrast study, I will order hemoglobin A1c DVT prophylaxis sequential compression device due to recent urologic intervention Disposition; plan to discharge home tomorrow if urology has no further intervention during this hospitalization and his pain is reasonably controlled with oral analgesics.
--- NOTE | 2024-10-21 11:30 | EKG ---
Test Date: 2024-10-19 Test Time: 20:01:06 Denture Laboratory Technician: MEASUREMENT RESULTS: Intervals: Rate: 114 GA: 174 QRSD: 76 QT: 332 QTc: 457 [place]: P: 55 GA: 174 QRS: -12 T: 14 INTERPRETIVE STATEMENTS: Sinus tachycardia Low voltage QRS Cannot rule out Anterior infarct, age undetermined Abnormal ECG No previous ECG available for comparison Electronically Signed On 10-21-24 11:28:05 MACHINE STAMPER by Jag Bentley
[2024-10-21 13:51] VITALS: O2SAT 98
[2024-10-22 04:48] VITALS: TEMP 98.2
[2024-10-22 06:08] LABS: Absolute Basophils 0.1 K/uL (0-0.5); Absolute Eosinophils 0.2 K/uL (0-0.5); Absolute Lymphocytes (CBC) 3.5 K/uL (0.7-4.9); Absolute Neutrophil 5.6 K/uL (1.8-8.0); Basophils % 1.2 % (0-1.3); Eosinophils % 1.8 % (0-4.4); Hematocrit 44.3 % (39.6-49.0); Hemoglobin 14.6 g/dL (13.6-17.9); MCH 30.7 pg (27.0-35.0); MCHC 32.9 g/dL (32.0-36.0); MCV 93.1 fL (80-100); MPV 8.8 fL (7.6-11.3); Monocytes % 9.4 % (3.3-12.3); Neutrophils % 53.6 % (41.7-73.7); Platelets 170 thou/uL (152-406); RBC Red Blood Cell Count 4.76 M/uL (4.33-5.43); Red Cell Distribution Width 15.1 % (12.1-15.2)
[2024-10-22 06:19] LABS: Anion Gap 12.6 mEq/L (5.0-15.0); Potassium 3.6 mEq/L (3.5-5.1)
[2024-10-22] MEDS: POTASSIUM CL SA 10 MEQ TAB PO ONE (08:11)
--- NOTE | 2024-10-22 09:52 | P.DS ---
Admission Date: 10/19/24 Discharge Date: 10/22/24 Disposition: ROUTINE DISCHARGE Discharge Condition: GOOD Reason for Admission: Ureteric Colic Brief History of Present Illness: This is 54 years old gentleman with past medical history notable for type 2 diabetes, hypertension, hyperlipidemia, status post penile skin graft who presented to emergency room for left flank pain and noted to have 1 cm left distal ureteral stone, underwent cystoscopy and left ureteral double J stent placement on October 19 and admitted on general medical floor Hospital Course: He did very well after urologic intervention, his pain gradually subsided, remained afebrile, he is not leukocytosis resolved, his pain reasonably controlled with oral analgesics. Final urine culture came back normal sharlene, empiric antibiotics was discontinued. Her gross hematuria gradually cleared up, follow-up hemoglobin did not drop. He was discharged home with a Jasmine catheter in. Plan is to follow-up with his urologist for further management. [place] 5/325 #15 was prescribed for pain control as needed. #1 symptomatic left ureteral stone status post bilateral ureteral stent on October 19 CT of abdomen and pelvis on admission mild left hydronephrosis, thickened bladder wall, no radiology sign of acute pyelonephritis #2 mild EDWARD secondary to obstructive uropathy related to #1 Resolved BUN/creatinine mildly elevated at 20/1.49 #3 abnormal urinalysis due to #1 Blood culture no growth to date, urine culture final culture result mixed sharlene, no bacteriuria by UA, #4 chronic urethral stricture Will continue to keep Jasmine catheter in and follow-up with urologist as outpatient #5 uncontrolled type 2 diabetes Treated with his home basal insulin and insulin bolus while his metformin was on hold after IV contrast study. Hemoglobin A1c was ordered but still pending at the time of discharge Vital Signs/Physical Exam: Temp Pulse Resp BP Pulse Ox 98.2 F 86 16 132/80 93 10/22/24 04:00 10/22/24 04:00 10/22/24 04:00 10/22/24 04:00 10/22/24 04:00 Other Physical/Emotional Findings: - Physical Exam. General: Obese, not acutely ill looking, in no apparent distress,. HEENT: Normocephalic, atraumatic, nonicteric sclera, nonanemic conjunctive. Neck: Supple, without JVD or goiter or thyroid mass. Respiratory: Normal breathing effort, clear to auscultation bilaterally, no crackles no wheezing or rhonchi. Cardiovascular: Regular rate and rhythm, S1, S2 normal, no murmur no gallop. Gastrointestinal: Normal bowel sounds, nondistended, nontender, No ascites, , No masses, no hepatosplenomegaly, indwelling Jasmine catheter in, less bloody urine in the bag. Extremities l: No clubbing, No peripheral edema, full range of motion, no deformity, no muscle atrophy. Integumentary: No rashes, petechia, suspected lesions. Lymphatics: No axilla or cervical lymphadenopathy. Neurology; alert awake oriented x3, no focal neurologic deficit, normal affection . mood and behavior. Laboratory Data at Discharge: WBC 10.40 thou/uL (4.3-10.9) 10/22/24 05:52 Hgb 14.6 g/dL (13.6-17.9) 10/22/24 05:52 Hct 44.3 % (39.6-49.0) 10/22/24 05:52 Plt Count 170 thou/uL (152-406) 10/22/24 05:52 PT 13.7 SECONDS (9.4-12.5) H 10/19/24 19:26 INR 1.23 10/19/24 19:26 APTT 34.6 SECONDS (24.3-36.9) 10/19/24 19:26 Sodium 136 mEq/L (136-145) 10/22/24 05:52 Potassium 3.6 mEq/L (3.5-5.1) 10/22/24 05:52 BUN 14 mg/dL (7-18) 10/22/24 05:52 Creatinine 0.91 mg/dL (0.70-1.30) 10/22/24 05:52 Glucose 148 mg/dL (74-106) H 10/22/24 05:52 Phosphorus 2.3 mg/dL (2.5-4.9) L 10/20/24 06:30 Magnesium 1.9 mg/dL (1.6-2.4) 10/20/24 06:30 Total Bilirubin 0.9 mg/dL (0.2-1.0) 10/20/24 06:30 AST 56 U/L (15-37) H 10/20/24 06:30 ALT 41 U/L (16-61) 10/20/24 06:30 Alkaline Phosphatase 68 U/L (45-117) 10/20/24 06:30 Lipase 50 U/L (13-75) 10/19/24 18:42 Home Medications: Allopurinol 300 mg PO DAILY 10/20/24 Insulin Degludec [Tresiba] 64 unit SQ DAILY 10/20/24 Metformin ER [Glucophage ER*] 500 mg PO BID 10/20/24 Rosuvastatin Calcium 20 mg PO DAILY 10/20/24 Hydrocodone 5/APAP 325 [[place] 5/325*] 1 tab PO TID PRN #15 tab 10/22/24 New Medications: Hydrocodone 5/APAP 325 [[place] 5/325*] 1 tab PO TID PRN #15 tab PRN Reason: Pain Scale 5-7 (Moderate) Diet: ADA Activity: Ad erik Followup: Tracey Moseley [Primary Care Provider] - Bethel Farmer [ACTIVE - CAN ADMIT] -
[2024-10-22 10:16] VITALS: BP 174/95
== END 2024-10-22 11:03 | disposition home or self-care (01) | DRG 853 ==
LOC: ER 16:57 → ERHOLD 21:18 → 4TH 21:43
PROVIDERS: ADMIT Family Medicine; ATTEND Internal Medicine
PROC: BT141ZZ Fluoroscopy of Kidneys, Ureters and Bladder using Low Osmolar Contrast (ICD-10-PCS; 2024-10-19)
PROC: 0T9B80Z Drainage of Bladder with Drainage Device, Via Natural or Artificial Opening Endoscopic (ICD-10-PCS; 2024-10-19)
PROC: 0T788DZ Dilation of Bilateral Ureters with Intraluminal Device, Via Natural or Artificial Opening Endoscopic (ICD-10-PCS; principal; 2024-10-19 21:30)
DX: A41.9 Sepsis, unspecified organism (principal); R65.21 Severe sepsis with septic shock; N13.6 Pyonephrosis; E87.20 Acidosis, unspecified; N17.9 Acute kidney failure, unspecified; I10 Essential (primary) hypertension; M10.9 Gout, unspecified; E78.00 Pure hypercholesterolemia, unspecified; E11.9 Type 2 diabetes mellitus without complications; R33.9 Retention of urine, unspecified; R31.0 Gross hematuria; R79.89 Other specified abnormal findings of blood chemistry; Z23 Encounter for immunization; Z79.4 Long term (current) use of insulin; Z79.84 Long term (current) use of oral hypoglycemic drugs; Z79.899 Other long term (current) drug therapy
CPT/HCPCS: 36415; 51600; 74176; 74430; 76377; 80048; 80053; 81001; 82947; 83036; 83605; 83690; 83735; 84100; 85025; 85610; 85730; 87040; 87086; 87088; 90471; 90732; 93005; 94760; 96361; 96365; 96368; 99285; J0696; J1650; J2250; J2270; J2371; J2543; J2704; J3010; J7030; J7120

== ENCOUNTER 2024-12-07 11:23 | Day surgery (SDC) | payer OTHER ==
[2024-11-26 12:12] LABS: Absolute Basophils 0.1 K/uL (0-0.5); Absolute Eosinophils 0.2 K/uL (0-0.5); Absolute Lymphocytes (CBC) 2.1 K/uL (0.7-4.9); Absolute Monocytes 1.2 K/uL (0.1-1.3); Absolute Neutrophil 20.6 K/uL (1.8-8.0); Basophils % 0.5 % (0-1.3); Eosinophils % 0.9 % (0-4.4); Hematocrit 33.4 % (39.6-49.0); Hemoglobin 11.2 g/dL (13.6-17.9); Lymphocytes % 8.8 % (15.3-44.8); MCH 29.9 pg (27.0-35.0); MCHC 33.6 g/dL (32.0-36.0); MCV 89.2 fL (80-100); MPV 9.2 fL (7.6-11.3); Monocytes % 4.8 % (3.3-12.3); Platelets 491 thou/uL (152-406); RBC Red Blood Cell Count 3.75 M/uL (4.33-5.43); Red Cell Distribution Width 15.2 % (12.1-15.2)
[2024-11-26 12:15] LABS: PT Prothrombin Time 14.1 SECONDS (9.4-12.5); Protime INR 1.35
[2024-11-26 12:23] LABS: Anion Gap 14.6 mEq/L (5.0-15.0); Potassium 3.6 mEq/L (3.5-5.1)
--- NOTE | 2024-11-26 12:29 | RAD REPORT ---
EXAM: Chest Pa And Lat (2 Views) HISTORY: 54 years Male pre op pending surgery COMPARISON: None. FINDINGS: LUNGS/PLEURA: The lungs are clear. No pleural effusions or pneumothorax. No pulmonary edema. Eventrat ion of the right hemidiaphragm. MEDIASTINUM: The mediastinal silhouette is within normal limits. CARDIAC: The cardiac silhouette is within normal limits. UPPER ABDOMEN: No significant abnormality. BONES: No acute abnormality. LINES/TUBES/OTHER: N/A IMPRESSION: No evidence of acute cardiopulmonary disease.
[2024-11-26 13:53] LABS: Atypical Lymphocytes 1 %; Blood Morphology Comment NOT SEEN (NOT SEEN); Differential Total Cells Count 100; Eosinophils 1 % (0-3); Lymphocytes 6 % (15-42); Monocytes 3 % (0-10); Platelet Estimate INCR; Segmented Neutrophils 89 % (40-80)
[2024-12-07 11:58] LABS: Absolute Eosinophils 0.2 K/uL (0-0.5); Absolute Lymphocytes (CBC) 2.4 K/uL (0.7-4.9); Absolute Monocytes 0.8 K/uL (0.1-1.3); Absolute Neutrophil 6.2 K/uL (1.8-8.0); Basophils % 0.2 % (0-1.3); Eosinophils % 2.1 % (0-4.4); Hematocrit 31.5 % (39.6-49.0); Hemoglobin 10.7 g/dL (13.6-17.9); Lymphocytes % 25.2 % (15.3-44.8); MCH 30.5 pg (27.0-35.0); MCHC 34.1 g/dL (32.0-36.0); MCV 89.4 fL (80-100); MPV 8.4 fL (7.6-11.3); Monocytes % 8.6 % (3.3-12.3); Neutrophils % 63.9 % (41.7-73.7); Platelets 277 thou/uL (152-406); RBC Red Blood Cell Count 3.52 M/uL (4.33-5.43); Red Cell Distribution Width 15.9 % (12.1-15.2)
[2024-12-07] MEDS: NA CHLORIDE 0.9% 1,000 ML ONE ×2 (12:08→14:00)
[2024-12-07 12:09] LABS: Anion Gap 11.6 mEq/L (5.0-15.0); Potassium 3.6 mEq/L (3.5-5.1)
[2024-12-07] MEDS: Gentamicin Inj 240 MG in NA CHLORIDE 0.9% 100 ML IV ONE (12:12)
[2024-12-07] MEDS ORDERED: propofoL 200 MG/20 ML VIAL IV ONE (13:06)
[2024-12-07] MEDS ORDERED: KETOROLAC 30 MG/ML INJ ONE (13:09)
[2024-12-07] MEDS ORDERED: FENTANYL CITR 100 MCG/2 ML ONE ×2 (13:09→14:05)
[2024-12-07] MEDS ORDERED: LIDOCAINE 1% MPF 5 ML VIAL ONE (13:09)
[2024-12-07] MEDS ORDERED: MIDAZOLAM HCL 2 MG/2 ML INJ ONE (13:09)
[2024-12-07] MEDS: AMPICILLIN SODIUM 2 GM/VIAL VIAL ONE (13:34)
[2024-12-07] MEDS ORDERED: Phenylephrine HCl 10 MG/ML 1 ML VIAL ONE (13:46)
[2024-12-07] MEDS ORDERED: ONDANSETRON 4 MG/2 ML VIAL ONE (13:46)
[2024-12-07] MEDS ORDERED: ROCURONIUM 50 MG/5 ML VIAL IV ONE (14:05)
[2024-12-07] MEDS ORDERED: HYDROCODONE/APAP 5/325 MG TAB PO PRN (14:59)
[2024-12-07] MEDS ORDERED: PHENAZOPYRIDINE 100MG TAB PO ONE (14:59)
[2024-12-07] MEDS: MEPERIDINE HCL 25 MG/ML SYR ONE (15:22)
--- NOTE | 2024-12-07 15:24 | P.OP ---
Date of Service: 12/07/24 Preoperative diagnoses: Left ureterolithiasis s/p left ureteral stent placement Left nephrolithiasis s/p right ureteral stent placement h/o urethral stricture disease, dilated Postoperative diagnoses: Left ureterolithiasis s/p left ureteral stent placement Left nephrolithiasis s/p right ureteral stent placement 12 Monegasque perineal urethral stricture disease recurrent Penile lesion Principal procedures: Cystoscopy Sequential urethral dilation of urethral stricture over a wire Left ureteroscopy with laser lithotripsy and stone basketing Left pyeloscopy with laser lithotripsy Right ureteral stent extraction Left ureteral 6 Monegasque by 26 cm stent exchange Complex Jasmine catheter placement over a wire Indication for procedure: 54-year-old gentleman who presented via the emergency department with suspected sepsis in the setting of left obstructive ureterolithiasis with left nephrolithiasis in the setting of cystitis with bilateral hydroureteronephrosis status post stents placed bilaterally 10/19/2024. Additionally, he was found to have urethral stricture disease that required dilatation at that time. This urethral stricture disease may have been associated with prior condition requiring skin grafting of his genitalia. Procedure note: The patient was consented in the preoperative holding area before being transferred to the operative suite where general anesthesia was induced. He was given ampicillin 2 g and gentamicin 240 mg IV antimicrobial prophylaxis, and pneumoboots were provided for DVT prophylaxis. He was placed in the lithotomy position, padded and secured to the table appropriately. His genitalia was prepped with Hibiclens and he was draped in standard fashion. The case was begun using a 22 Monegasque rigid cystoscope to traverse the distal urethra until within the perineal urethra, a dense 8-12 Monegasque area of urethral stricture was encountered. As a result, I passed a guidewire via the scope through the opening and the stricture disease and putatively coiling it within the bladder. Over the wire, I used sequential dilators to dilate the area of stricture narrowing from 14 Monegasque to 24 Monegasque, with excessive difficulty dilating beyond 22 Monegasque. Once dilated, I left the wire in place and then passed the cystoscope alongside the wire through the point of stricture narrowing and ultimately into his bladder. I decompressed the bladder of fluid and urine and refilled it with saline. I identified the left ureteral stent emanating from the left ureteral orifice, and I grasped the coil of the stent and delivered the tip to the meatus. The proximal coil of the stent remained within the mid proximal ureter as evidenced fluoroscopically. I thus passed a sensor wire via the stent and ultimately into the putative collecting system. I remove those stent leaving the wire in place, and then advanced a dual-lumen catheter over the wire into the mid ureter. A retrograde study was then performed. Left retrograde pyelography: Using a 70: 30 mixture of Omnipaque and saline, contrast was injected via the second lumen of the dual-lumen catheter and did propagate up the distal into the mid and proximal ureter before entering what was a moderately hydronephrotic left renal pelvis. This was hydronephrotic despite the presence of the stent. As a result, I passed a Greendizer guidewire via the second lumen of the dual-lumen catheter and left it in place coiled alongside the sensor safety wire. I then remove the dual-lumen catheter and performed direct vision semirigid ureteroscopy through the urethra and into his bladder, ultimately going into his left distal ureter and visualized the presence of several stones that were each around 4 to 5 mm in diameter. As a result, I utilized the 0 tip nitinol basket to grasp and deliver some of those stones to the area of the ureteral orifice, but they would not pass. So I had to utilize a laser at a power setting of 0.8 J and 15 Hz to fragment the stones into smaller fragments that would pass within the basket out of the ureteral orifice. Once each of the 2 dominant fragments observed were removed and other smaller fragments had fallen out, I then removed the semirigid ureteroscope and placed a 12 x 14 Monegasque ureteral access sheath all the way up his ureter into his renal pelvis as evidenced fluoroscopically with ease. I then performed flexible pyeloscopy of the entirety of the calyces and renal pelvis of his left kidney. In the midpole calyx and again in the lower pole calyx, I encountered stones that were approximately 3 to 4 mm in diameter. As a result, I utilized the laser fiber to fragment them out of their attached position within the papilla and continue to fragment the stones until t he dust was smaller than 1 mm maximum. 1 side surveyed each of the calyces and no additional stones of any significant size were noted, I then backed the scope back into the proximal ureter and surveyed down into the mid and distal ureter on the way out for any source of injury. When no injury was noted, I discontinued ureteroscopy and laser lithotripsy, and I backloaded the cystoscope over the indwelling safety wire. I then placed a new 6 Monegasque by 26 cm double-J ureteral stent over the sensor safety wire coiling it within the upper pole of his left kidney with an additional coil formed cystoscopically within his bladder. I then decompressed his bladder of fluid, urine, some blood clot, and ultimately collected some of the stone fragments from the lithotripsy performed. These were sent for chemical analysis. I then retrograde filled his bladder before passing a Ourcast[employer] guidewire into the bladder. Over the wire, I passed an 18 M[place]gasque [place]sh[place] tip Jsamine catheter with ease. 15 cc of sterile water was placed in the balloon, and the catheter was connected to a leg bag. He was then taken out of the lithotomy position, awakened from general anesthesia, transferred to a stretcher, and then transferred to the recovery room in good condition. Complications: None Discharge disposition: He should keep the left ureteral stent for about 3 to 4 weeks and then we will remove it cystoscopically in the office. Patient should be given an order for a BMP to obtain 2 to 3 days prior to said follow-up visit for stent removal. Care and maintenance of the penile lesion seen, given his prior history of skin grafting, should include triple antibiotic ointment/Neosporin at least twice daily to the glans. We will consider the role for other therapeutics, potentially like Lotrisone, on follow-up. Metabolic profile assessment will be required and will be arranged on follow-up after the stent is removed. Additional treatment of his recurrent urethral stricture disease may also radha ntually be required, but he likely would benefit from seeing one of the urethral reconstructive surgeons at [facility] given his prior disease and skin grafting with recurrence of the stricture disease.
[2024-12-07] MEDS ORDERED: Ringers Lactate 0 ML IV ONE (15:42)
[2024-12-07] MEDS ORDERED: NA CHLORIDE 0.9% 1,000 ML ONE (15:43)
--- NOTE | 2024-12-07 16:16 | RAD REPORT ---
EXAM: Fluoroscopy use, Urethrocystogrphy Retrograde HISTORY: [facility] MAIN LT STENT COMPARISON: None FINDINGS: A total of 18 images were sent to PACS, during a fluoroscopically guided left-sided urethro gram and stent placement. No radiologist was involved in protocoling or performance of the study, and no radiologist was present for the duration of the procedure. No interpretation of the saved imag es will be provided. Total fluoroscopy time: 0.2. IMPRESSION: Documentation of fluoroscopy use as above.
[2024-12-07 16:38] VITALS: BP 126/72; TEMP 98.4; O2SAT 100
== END 2024-12-07 17:25 | disposition home or self-care (01) ==
LOC: OR 11:23
PROVIDERS: ATTEND Urology
PROC: 0T778DZ Dilation of Left Ureter with Intraluminal Device, Via Natural or Artificial Opening Endoscopic (ICD-10-PCS; 2024-12-07)
PROC: 0TC78ZZ Extirpation of Matter from Left Ureter, Via Natural or Artificial Opening Endoscopic (ICD-10-PCS; principal; 2024-12-07 13:15)
DX: N20.0 Calculus of kidney (principal); N20.1 Calculus of ureter
CPT/HCPCS: 52356; 87088; 85025 ×2; 87086; 80048 ×2; 36415 ×2; 85610; 82947; 87077; 87186; 71046; 74450; 51610; J2704; J2003; J2371; J1580; J2250; J3010 ×2; J2175; J2405; J0290; J7030 ×3; J7120

== ENCOUNTER 2025-06-13 06:48 | Emergency (ER) | payer OTHER ==
[2025-06-13] MEDS ORDERED: ONDANSETRON 4 MG/2 ML VIAL ONE (08:03)
[2025-06-13] MEDS ORDERED: DIAZEPAM 5 MG TABLET ONE (08:04)
[2025-06-13] MEDS ORDERED: KETOROLAC 30 MG/ML INJ ONE (08:04)
[2025-06-13] MEDS ORDERED: MORPHINE 4 MG/ML SYR ONE (08:04)
[2025-06-13] MEDS ORDERED: NA CHLORIDE 0.9% 1,000 ML ONE (08:05)
[2025-06-13 08:08] LABS: Absolute Lymphocytes (CBC) 1.9 K/uL (0.7-4.9); Hematocrit 35.4 % (39.6-49.0); Hemoglobin 11.9 g/dL (13.6-17.9); MCH 27.6 pg (27.0-35.0); MCHC 33.6 g/dL (32.0-36.0); MCV 82.3 fL (80-100); MPV 7.9 fL (7.6-11.3); Nucleated RBC Absolute Count 0.0 (0-0); Nucleated Red Blood Cells % 0.0 % (0-0); RBC Red Blood Cell Count 4.30 M/uL (4.33-5.43); White Blood Count 14.40 thou/uL (4.3-10.9)
[2025-06-13 08:33] LABS: ALT/SGPT 27.0 U/L (16-61); AST/SGOT 27.0 U/L (15-37); Albumin 2.5 g/dL (3.4-5.0); Albumin/Globulin Ratio 0.4 (1.1-1.8); Alkaline Phosphatase 273.0 U/L (45-117); Anion Gap 13.4 mEq/L (5.0-15.0); BUN Blood Urea Nitrogen 28.0 mg/dL (7-18); Globulin 6.8 g/dL (2.3-3.5); Glucose Level 107.0 mg/dL (74-106); Potassium 3.4 mEq/L (3.5-5.1)
--- NOTE | 2025-06-13 08:57 | RAD REPORT ---
EXAMINATION: MRI LUMBAR SPINE WITHOUT CONTRAST CLINICAL INDICATION: Radiculopathy TECHNIQUE: Multiplanar multisequence MR images were obtained of the lumbar spine without intravenous contrast. Unless otherwise specified, incidental findings do not require dedicated imaging follow-up. [id number]. COMPARISON: May 2025 x-ray. FINDINGS: For purposes of this dictation, it is assumed that there are 5 non rib-bearing lumbar type vertebrae, and the most caudal fully segmented lumbar vertebra is labeled L5. L1-2 unremarkable Mild narrowing L2-3 disc. Mild spondylosis. Disc bulge with annular fissure. Disc bulge with annular fissure at L3-4. Ligamentum flavum and facet hypertrophy. Mild narrowing of t he neural foramina bilaterally Small disc bulge within the fissure L4-5. Facet hypertrophy. Mild narrowing right neural foramina L5-S1 unremarkable No central spinal stenosis. Vertebra demonstrate normal signal. IMPRESSION: Mild spondylosis lumbar spine
--- NOTE | 2025-06-13 09:46 | EDPHYS ---
Physician Documentation [facility] Name: Kev Yu IV Age: 55 yrs Sex: Male : 1970 Arrival Date: 06/13/2025 Time: 06:48 Bed 6 Private MD: ED Physician Sameer Monroy HPI: 06/13 09:37 This 55 yrs old Male presents to ER via EMS with complaints of Numbness of abraham Low Ext. 09:37 The patient presents with decreased range of motion, pain. The complaints affect the abraham right leg and left leg. Context: The problem was sustained at an unknown site, resulted from an unknown cause. Modifying factors: The symptoms are alleviated by remaining still, the symptoms are aggravated by nothing. Associated signs and symptoms: The patient has no apparent associated signs or symptoms. Treatment prior to arrival includes: no previous treatment. Severity of symptoms: At their worst the symptoms were moderate, in the emergency department the symptoms are unchanged. The patient has not experienced similar symptoms in the past. Historical: - PMHx: 06:54 diabetes mellitus; Hypertensive disorder; kd4 - Immunization history:: Adult Immunizations up to date. - Infectious Disease History:: Denies. - Social history:: Smoking status: Patient denies any tobacco usage or history of. - Family history:: not pertinent. ROS: 09:37 Constitutional: Negative for fever, chills, and weight loss, Eyes: Negative for injury, abraham pain, redness, and discharge, ENT: Negative for injury, pain, and discharge, Neck: Negative for injury, pain, and swelling, Cardiovascular: Negative for chest pain, palpitations, and edema, Respiratory: Negative for shortness of breath, cough, wheezing, and pleuritic chest pain, Abdomen/GI: Negative for abdominal pain, nausea, vomiting, diarrhea, and constipation, : Negative for injury, bleeding, discharge, and swelling, MS/Extremity: Negative for injury and deformity, Skin: Negative for injury, rash, and discoloration, Neuro: Negative for headache, weakness, numbness, tingling, and seizure, Psych: Negative for depression, anxiety, suicide ideation, homicidal ideation, and hallucinations, Allergy/Immunology: Negative for hives, rash, and allergies, Endocrine: Negative for neck swelling, polydipsia, polyuria, polyphagia, and marked weight changes, Hematologic/Lymphatic: Negative for swollen nodes, abnormal bleeding, and unusual bruising, 09:37 Abdomen/GI: Negative for abdominal pain, nausea and vomiting, Exam: 09:37 Constitutional: This is a well developed, well nourished patient who is awake, alert, abraham and in no acute distress. Head/Face: Normocephalic, atraumatic. Eyes: Pupils equal round and reactive to light, extra-ocular motions intact. Lids and lashes normal. Conjunctiva and sclera are non-icteric and not injected. Cornea within normal limits. Periorbital areas with no swelling, redness, or edema. ENT: Nares patent. No nasal discharge, no septal abnormalities noted. Tympanic membranes are normal and external auditory canals are clear. Oropharynx with no redness, swelling, or masses, exudates, or evidence of obstruction, uvula midline. Mucous membranes moist. Neck: Trachea midline, no thyromegaly or masses palpated, and no cervical lymphadenopathy. Supple, full range of motion without nuchal rigidity, or vertebral point tenderness. No Meningismus. Chest/axilla: Normal chest wall appearance and motion. Nontender with no deformity. No lesions are appreciated. Cardiovascular: Regular rate and rhythm with a normal S1 and S2. No gallops, murmurs, or rubs. Normal PMI, no JVD. No pulse deficits. Respiratory: Lungs have equal breath sounds bilaterally, clear to auscultation and percussion. No rales, rhonchi or wheezes noted. No increased work of breathing, no retractions or nasal flaring. Abdomen/GI: Soft, non-tender, with normal bowel sounds. No distension or tympany. No guarding or rebound. No evidence of tenderness throughout. Male : Normal genitalia with no discharge or lesions. Skin: Warm, dry with normal turgor. Normal color with no rashes, no lesions, and no evidence of cellulitis. Neuro: Awake and alert, GCS 15, oriented to person, place, time, and situation. Cranial nerves II-XII grossly intact. Motor strength 5/5 in all extremities. Sensory grossly intact. Cerebellar exam normal. Normal gait. Psych: Awake, alert, with orientation to person, place and time. Behavior, mood, and affect are within normal limits. 09:37 Back: pain, that is mild, that is moderate, ROM is painful, with flexion, with extension, normal spinal alignment noted, CVA tenderness, is absent, vertebral tenderness, is not appreciated, muscle spasm, is not present, 10:23 ECG was reviewed by the Attending Physician. [facility] Vital Signs: 06:51 BP 142 / 95; Pulse 106; Resp 19; Temp 98.2; Pulse Ox 96% on R/A; Weight 108.86 kg; kd4 Height 6 ft. 0 in. ; Pain 0/10; 11:04 BP 167 / 96; Pulse 99; Resp 18; Pulse Ox 98% ; bp 13:12 BP 165 / 95; Pulse 99; Resp 20; Pulse Ox 95% ; bp 06:51 Body Mass Index 32.55 (108.86 kg, 182.88 cm) kd4 06:51 Pain Scale: Adult kd4 [place] Coma Score: 06:55 Eye Response: spontaneous(4). Motor Response: obeys commands(6). Verbal Response: kd4 oriented(5). Total: 15. 09:37 Eye Response: spontaneous(4). Motor Response: obeys commands(6). Verbal Response: abraham oriented(5). Total: 15. MDM: 07:04 Medical Screening Exam initiated abraham 09:40 Differential diagnosis: closed fracture, tendonitis. Data reviewed: vital signs, nurses [facility] notes, lab test result(s), EKG, radiologic studies, CT scan, MRI. Consideration of Admission/Observation Escalation of care including admission/observation considered. I considered the following discharge prescriptions or medication management in the emergency department Medications were administered in the Emergency Department. See MAR. Independent interpretation of the following test(s) in the Emergency Department EKG: See my EKG interpretation above. Test considered but Not performed: Ultrasound NO USG LOWER EXTREMITIES. Historians other than the Patient:. Care significantly affected by the following chronic conditions: Diabetes, Hypertension, Obesity. Counseling: I had a detailed discussion with the patient and/or guardian regarding the historical points, exam findings, and any diagnostic results supporting the discharge/admit diagnosis, lab results, radiology results, the need for further work-up and treatment in the hospital. 06/13 07:23 Order name: CBC with Diff; Complete Time: 09:18 [facility] 06/13 07:23 Order name: CMP; Complete Time: 09:18 [facility] 06/13 09:32 Order name: Troponin High Sensitivity; Complete Time: 10:14 [facility] 06/13 09:38 Order name: LAB Add On bd 06/13 09:49 Order name: Creatine Phosphokinase; Complete Time: 10:14 [facility] 06/13 10:17 Order name: Blood Culture Adult (2) [facility] 06/13 10:17 Order name: Lactate w/ 2H reflex if indic. [facility] 06/13 11:21 Order name: Ghost Lactate-NO COLLECT Timer EDTX 06/13 07:23 Order name: MRI Lumbar Spine wo Con; Complete Time: 09:18 [facility] 06/13 09:32 Order name: CT Chest Abdomen Pelvis W/O Contrast; Complete Time: 10:14 [facility] 06/13 09:32 Order name: EKG; Complete Time: 09:32 [facility] 06/13 09:32 Order name: EKG - Nurse/Tech; Complete Time: 09:56 [facility] 06/13 10:33 Order name: IV Saline Lock - Large Bore; Complete Time: 11:03 [facility] EC:23 Rate is 91 beats/min. Rhythm is regular. QRS [place] is Normal. ME interval is normal. QRS abraham interval is normal. QT interval is normal. No Q waves. T waves are Normal. No ST changes noted. Clinical impression: NSR w/ Non-specific ST/T Changes and No evidence of ischemia. Interpreted by me. Reviewed by me. Administered Medications: 08:12 Drug: NS 0.9% IV 1000 ml IV at 1000 ml once; to be given as a bolus over 60 minutes bp Route: IV; Rate: 1000 ml; Site: right antecubital; 13:14 Follow up: IV Status: Completed infusion bp 08:12 Drug: Ketorolac IVP 30 mg IVP once Route: IVP; Site: right antecubital; bp 13:14 Follow up: Response: No adverse reaction bp 08:12 Drug: Decadron - Dexamethasone IVP 10 mg IVP once Route: IVP; Site: right antecubital; bp 13:14 Follow up: Response: No adverse reaction bp 08:12 Drug: Diazepam PO 10 mg PO once Route: PO; bp 13:14 Follow up: Response: No adverse reaction bp 08:12 Drug: morphine IVP or IV 4 mg IVP once over 4 mins Route: IVP; Infused Over: 4 mins; bp Site: right antecubital; 13:14 Follow up: Response: No adverse reaction bp 08:12 Drug: Ondansetron IVP 4 mg IVP once; over 2 minutes Route: IVP; Site: right antecubital;bp 13:14 Follow up: Response: No adverse reaction bp 08:13 Drug: NS 0.9% IV 1000 ml IV at 1000 ml once; to be given as a bolus over 60 minutes bp Route: IV; Rate: 1000 ml; Site: right antecubital; 13:13 Follow up: IV Status: Completed infusion bp 09:56 Drug: Potassium PO Effervescent Tablet 25 mEq PO once; dissolve in 4 ounces of water or db juice Route: PO; 13:13 Follow up: Response: No adverse reaction bp 10:30 Drug: NS 0.9% IV (30 ml/kg) 30 ml/kg IV at bolus once; Sepsis Protocol; to be given as bp a bolus over 90 minutes Route: IV; Rate: bolus; Site: right upper arm; 13:13 Follow up: IV Status: Completed infusion bp 10:30 Drug: Cefepime IVPB 2 grams IVPB at 200 ml/hr once over 30 mins; (mix in NS 100 mL) bp Route: IVPB; Rate: 200 ml/hr; Infused Over: 30 mins; Site: right upper arm; 13:13 Follow up: IV Status: Completed infusion bp 11:39 Drug: vancoMYCIN IVPB 1 grams IVPB once over 2 hrs Route: IVPB; Infused Over: 2 hrs; bp Site: right upper arm; 13:13 Follow up: IV Status: Completed infusion bp Disposition Summary: 06/13/25 09:45 Transfer Ordered Notes: Transfer Location: [facility] abraham Reason: Higher level of care abraham Condition: Fair abraham Problem: new abraham Symptoms: have improved abraham Accepting Physician: [facility](06/13/25 13:15) bp Diagnosis - Weakness - LOWER EXTREMITIES abraham - Obesity, unspecified abraham - Unspecified kidney failure - CHRONIC abraham - Elevated white blood cell count abraham - Discitis, unspecified, thoracic region - 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 Total time: 70 minutes Signatures: Dispatcher [employer] Sameer Nelson MD MD cha Peltier, Brian, RN RN Lala Armstrong, RN RN Leann Varma RN RN kd4 Corrections: (The following items were deleted from the chart) 09:45 09:45 [facility] abraham abraham 10:22 09:45 [facility] abraham abraham 10:33 10:22 [facility] abraham abraham 10:33 10:22 Discitis, unspecified, thoracic region - T8 -T9, WITH OSTEOMYELITIS abraham abraham 13:15 10:33 TO [facility] abraham bp
--- NOTE | 2025-06-13 09:46 | ER ---
Nurse's Notes [facility] Name: Kev Yu IV Age: 55 yrs Sex: Male : 1970 Arrival Date: 06/13/2025 Time: 06:48 Bed 6 Private MD: Diagnosis: Weakness-LOWER EXTREMITIES;Obesity, unspecified;Unspecified kidney failure-CHRONIC;Elevated white blood cell count;Discitis, unspecified, thoracic region-T8 -T9, WITH OSTEOMYELITIS , SPINAL CORD INVOLVEMENT;Pneumonia due to other specified bacteria-BILATERAL LOWER LOBE Presentation: 06/13 06:51 Chief complaint: Patient states: BLE NUMBNESS X 1 WEEK WORSENING TODAY. Coronavirus kd4 screen: Client denies travel out of the [place] in the last 14 days. Ebola Screen: No symptoms or risks identified at this time. Initial Sepsis Screen: Does the patient meet any 2 criteria? HR > 90 bpm. No. Patient's initial sepsis screen is negative. Does the patient have a suspected source of infection? No. Patient's initial sepsis screen is negative. Risk Assessment: Do you want to hurt yourself or someone else? Patient reports no desire to harm self or others. 06:51 Method Of Arrival: EMS kd4 06:51 Acuity: NAYELI 3 kd4 Triage Assessment: 06:54 General: Appears in no apparent distress. Behavior is calm, cooperative. Pain: Denies kd4 pain. Neuro: Reports numbness in ble. Respiratory: No deficits noted. Historical: - PMHx: 06:54 diabetes mellitus; Hypertensive disorder; kd4 - Immunization history:: Adult Immunizations up to date. - Infectious Disease History:: Denies. - Social history:: Smoking status: Patient denies any tobacco usage or history of. - Family history:: not pertinent. Screenin:55 Abuse screen: Denies threats or abuse. Nutritional screening: No deficits noted. kd4 Tuberculosis screening: No symptoms or risk factors identified. 13:11 [facility] ED Fall Risk Assessment (Adult) History of falling in the last 3 months, bp including since admission No falls in past 3 months (0 pts) Confusion or Disorientation No (0 pts) Intoxicated or Sedated No (0 pts) Impaired Gait Yes (1 pt) Mobility Assist Device Used No (0 pt) Altered Elimination No (0 pt) Score/Fall Risk Level 0 - 2 = Low Risk Oriented to surroundings. Assessment: 06:55 General: Appears in no apparent distress. Pain: Denies pain. Neuro: Reports numbness in kd4 BLE. 12:19 Reassessment: REPORT TO MARLEN DOHERTY AT [facility] [id number]. bp 13:06 Reassessment: EMS AT B/S FOR TRANSFER. bp Vital Signs: 06:51 BP 142 / 95; Pulse 106; Resp 19; Temp 98.2; Pulse Ox 96% on R/A; Weight 108.86 kg; kd4 Height 6 ft. 0 in. ; Pain 0/10; 11:04 BP 167 / 96; Pulse 99; Resp 18; Pulse Ox 98% ; bp 13:12 BP 165 / 95; Pulse 99; Resp 20; Pulse Ox 95% ; bp 06:51 Body Mass Index 32.55 (108.86 kg, 182.88 cm) kd4 06:51 Pain Scale: Adult kd4 Hawthorne Coma Score: 06:55 Eye Response: spontaneous(4). Motor Response: obeys commands(6). Verbal Response: kd4 oriented(5). Total: 15. 09:37 Eye Response: spontaneous(4). Motor Response: obeys commands(6). Verbal Response: abraham oriented(5). Total: 15. ED Course: 06:49 Patient arrived in ED. jj6 06:54 Triage completed. kd4 06:54 Arm band placed on. kd4 06:55 Client placed on continuous cardiac and pulse oximetry monitoring. NIBP monitoring kd4 applied. Pulse ox on. NIBP on. 07:00 Sameer Monroy MD is Attending Physician. ms3 07:37 Enoch Miller, BESSY is Primary Nurse. bp 08:13 MRI Lumbar Spine wo Con Sent. bp 08:13 Initial lab(s) drawn, by me, sent to lab. Inserted saline lock: 22 gauge in right bp antecubital area, using aseptic technique. Blood collected. Flushed with 10 mL NS. 08:49 MRI Lumbar Spine wo Con In Process Unspecified. EDMS 09:51 CT Chest Abdomen Pelvis W/O Contrast In Process Unspecified. EDMS 11:18 Notified ED physician of a critical lab result(s). lactic acid 2.6. ll1 13:11 No provider procedures requiring assistance completed. Patient transferred, IV remains bp in place. 13:12 Patient has correct armband on for positive identification. Provided Education on: NA. bp Administered Medications: 08:12 Drug: NS 0.9% IV 1000 ml IV at 1000 ml once; to be given as a bolus over 60 minutes bp Route: IV; Rate: 1000 ml; Site: right antecubital; 13:14 Follow up: IV Status: Completed infusion bp 08:12 Drug: Ketorolac IVP 30 mg IVP once Route: IVP; Site: right antecubital; bp 13:14 Follow up: Response: No adverse reaction bp 08:12 Drug: Decadron - Dexamethasone IVP 10 mg IVP once Route: IVP; Site: right antecubital; bp 13:14 Follow up: Response: No adverse reaction bp 08:12 Drug: Diazepam PO 10 mg PO once Route: PO; bp 13:14 Follow up: Response: No adverse reaction bp 08:12 Drug: morphine IVP or IV 4 mg IVP once over 4 mins Route: IVP; Infused Over: 4 mins; bp Site: right antecubital; 13:14 Follow up: Response: No adverse reaction bp 08:12 Drug: Ondansetron IVP 4 mg IVP once; over 2 minutes Route: IVP; Site: right antecubital;bp 13:14 Follow up: Response: No adverse reaction bp 08:13 Drug: NS 0.9% IV 1000 ml IV at 1000 ml once; to be given as a bolus over 60 minutes bp Route: IV; Rate: 1000 ml; Site: right antecubital; 13:13 Follow up: IV Status: Completed infusion bp 09:56 Drug: Potassium PO Effervescent Tablet 25 mEq PO once; dissolve in 4 ounces of water or db juice Route: PO; 13:13 Follow up: Response: No adverse reaction bp 10:30 Drug: NS 0.9% IV (30 ml/kg) 30 ml/kg IV at bolus once; Sepsis Protocol; to be given as bp a bolus over 90 minutes Route: IV; Rate: bolus; Site: right upper arm; 13:13 Follow up: IV Status: Completed infusion bp 10:30 Drug: Cefepime IVPB 2 grams IVPB at 200 ml/hr once over 30 mins; (mix in NS 100 mL) bp Route: IVPB; Rate: 200 ml/hr; Infused Over: 30 mins; Site: right upper arm; 13:13 Follow up: IV Status: Completed infusion bp 11:39 Drug: vancoMYCIN IVPB 1 grams IVPB once over 2 hrs Route: IVPB; Infused Over: 2 hrs; bp Site: right upper arm; 13:13 Follow up: IV Status: Completed infusion bp Medication: 13:12 VIS not applicable for this client. bp Outcome: 09:45 ER care complete, transfer ordered by MD. rosario 13:11 Transferred by ground EMS to [facility], Transfer form completed. bp 13:11 Condition: stable 13:11 Instructed on the need for transfer, 13:15 Patient left the ED. bp Signatures: Dispatcher [employer] EDMS Sameer Monroy MD MD cha Peltier, Brian, RN RN bp Laverne Zhou RN RN ll1 Jeffrey Barron DO DO ms3 Cherry Pereyra6 aLla Morales RN RN db Leann Brown RN RN kd4
[2025-06-13] MEDS ORDERED: POTASSIUM 25 MEQ EFFERV TAB ONE (09:52)
[2025-06-13 10:03] LABS: Troponin High Sensitivity 3.2 pg/mL (<58.9)
--- NOTE | 2025-06-13 10:04 | RAD REPORT ---
EXAM: CT CHEST, ABDOMEN AND PELVIS WITHOUT CONTRAST CLINICAL INDICATION: Chest and abdominal pain TECHNIQUE: CT chest, abdomen and pelvis was performed, without IV contrast, as per department protoco l. Axial, sagittal and coronal reconstructions were obtained. One or more of the following dose reduction techniques were used: Automated exposure control, adjustment of the mA and/or kV according to the patient size, and/or iterative reconstruction. Unless otherwise specified, incidental findings do not require dedicated imaging follow-up. The lack of IV and oral contrast limits evaluation of the mediastinum, torsten, vessels, organs and marin l. COMPARISON: None FINDINGS: Cortical destruction involves the inferior vertebral endplate T8 and superior vertebral endplate T9. The disc is narrowed. Paravertebral soft tissue mass present. Compression of the left anterior aspect of the thecal sac seen Bilateral lower lobe consolidations Small right pleural effusion. No mediastinal or hilar lymphadenopathy seen. Cirrhotic liver. Gallbladder distention Mild splenomegaly Pancreas, adrenals and kidneys grossly normal. Thickened bladder wall trabeculations. Mild to moderate prostatic enlargement. Small umbilical hernia There is no evidence of diverticulitis IMPRESSION: Cortical destruction inferior vertebral endplate T8 and superior vertebral endplate T9 with paraverte bral soft tissue mass and compression left anterior aspect of the thecal sac compatible with osteomyelitis/discitis Bilateral lower lobe consolidation probably pneumonia
[2025-06-13] MEDS ORDERED: CEFEPIME 2 GM VIAL ONE (10:53)
[2025-06-13] MEDS ORDERED: VANCOMYCIN 1 GM/VIAL ONE (10:53)
[2025-06-13] MEDS ORDERED: NA CHLORIDE 0.9% 250 ML ONE (10:53)
[2025-06-13] MEDS ORDERED: NA CHLORIDE 0.9% 100 ML ONE (10:54)
[2025-06-13 13:34] VITALS: TEMP 98.2
[2025-06-13 13:36] VITALS: BP 165/95; O2SAT 95
== END 2025-06-13 13:15 | disposition short-term general hospital (02) ==
LOC: ER 06:48
DX: M46.44 Discitis, unspecified, thoracic region (principal); M46.24 Osteomyelitis of vertebra, thoracic region; J15.8 Pneumonia due to other specified bacteria; E11.22 Type 2 diabetes mellitus with diabetic chronic kidney disease; I12.9 Hypertensive chronic kidney disease with stage 1 through stage 4 chronic kidney disease, or unspecified chronic kidney disease; N18.9 Chronic kidney disease, unspecified; D72.829 Elevated white blood cell count, unspecified; E66.9 Obesity, unspecified
CPT/HCPCS: 96365; 96367; 96361; 96368; 93005; 87040 ×2; 85025; 36415; 82550; 83605; 84484; 80053; 71250; 74176; 72148; 96375; 99285; 96366; J3370; J0692; J1100; J2405; J7050; J7030